=== PATIENT | male | born 1940 | race Caucasian/White ===

== ENCOUNTER 2017-07-22 19:17 | Inpatient (IN) ==
[2017-07-22] MEDS ORDERED: ONDANSETRON 4 MG/2 ML VIAL IV PRN (19:20)
[2017-07-22] MEDS ORDERED: GLUCAGON 1 MG VIAL IM PRN (19:20)
[2017-07-22] MEDS ORDERED: DEXTROSE 50% 25 GM/50 ML VIAL IV PRN (19:20)
[2017-07-22] MEDS ORDERED: INSULIN REGULAR 100 UNIT/ML SUBCUT SCH (21:00)
[2017-07-22 22:23] LABS: Basophils % 0.1 % (0.0-0.8); Hematocrit 49.9 VOL% (42.0-52.0); Hemoglobin 16.1 GM/DL (14.0-18.0); Immature Granulocytes % 0.5 %; Immature Granulocytes Absolute 0.05 #; Lymphocytes # 0.6 10*3/uL (1.4-4.0); Lymphocytes % 6.2 % (21.2-54.2); Mean Corpuscular HGB Conc 32.3 GM/DL (32-36); Mean Corpuscular Hemoglobin 29 PG (27-34); Mean Corpuscular Volume 88.6 FL (87-102); Mean Platelet Volume 10.7 FL (9.6-12.0); Monocytes # 0.7 10*3/uL (0.11-0.8); Monocytes % 6.8 % (1.7-12.7); Neutrophils # 8.9 10*3/uL (1.4-7.4); Neutrophils % 86.4 % (38.7-73.9); Platelet Count 283 T/CUMM (130-400); Red Blood Count 5.63 MC/CUMM (3.8-5.5); Red Cell Distribution Width 13.1 % (9.3-17.3); White Blood Count 10.3 T/CUMM (4-12)
[2017-07-22 22:50] LABS: Bilirubin,Total 0.6 MG/DL (0.2-1.0); Calcium 8.9 MG/DL (8.5-10.1); Osmolality,Calculated 320.3 MOS/KG (273-304); Potassium 5.4 MMOL/L (3.5-5.1); Total Protein 6.7 G/DL (6.4-8.3)
[2017-07-22] MEDS: SODIUM CHLORIDE 0.9% 1,000 ML IV SCH (22:56)
[2017-07-23 01:51] LABS: Basophils % 0.1 % (0.0-0.8); Hematocrit 48.2 VOL% (42.0-52.0); Hemoglobin 15.7 GM/DL (14.0-18.0); Immature Granulocytes % 0.5 %; Immature Granulocytes Absolute 0.04 #; Lymphocytes # 0.6 10*3/uL (1.4-4.0); Lymphocytes % 6.4 % (21.2-54.2); Mean Corpuscular HGB Conc 32.6 GM/DL (32-36); Mean Corpuscular Hemoglobin 29 PG (27-34); Mean Platelet Volume 10.5 FL (9.6-12.0); Monocytes # 0.6 10*3/uL (0.11-0.8); Monocytes % 7.2 % (1.7-12.7); Neutrophils # 7.4 10*3/uL (1.4-7.4); Neutrophils % 85.8 % (38.7-73.9); Platelet Count 248 T/CUMM (130-400); Red Blood Count 5.48 MC/CUMM (3.8-5.5); Red Cell Distribution Width 13.1 % (9.3-17.3); White Blood Count 8.6 T/CUMM (4-12)
[2017-07-23] MEDS: INSULIN REGULAR 100 UNIT/ML SUBCUT SCH ×6 (02:08→22:13)
[2017-07-23 02:11] LABS: Calcium 8.2 MG/DL (8.5-10.1); Potassium 4.8 MMOL/L (3.5-5.1)
[2017-07-23] MEDS: LEVOTHYROXINE 75 MCG TABLET PO SCH (06:16)
[2017-07-23] MEDS ORDERED: GLIMEPIRIDE 4 MG TABLET PO SCH (08:00)
[2017-07-23] MEDS: PANTOPRAZOLE 40 MG TABLET PO SCH (08:45)
[2017-07-23] MEDS: TAMSULOSIN 0.4 MG CAPSULE PO SCH ×2 (08:45→21:25)
[2017-07-23] MEDS: INSULIN GLARGINE 100 UNIT/ML SUBCUT SCH (08:47)
[2017-07-23] MEDS: SODIUM CHLORIDE 0.9% 1,000 ML IV SCH ×2 (08:51→18:50)
[2017-07-23] MEDS ORDERED: hydrALAZINE 20 MG/1 ML VIAL IV PRN (13:25)
[2017-07-23] MEDS ORDERED: LACTATED RINGERS 1,000 ML IV ONE (14:00)
[2017-07-23] MEDS: GENTAMICIN 0.3% OPH SOLN 5 ML BOTTLE RIGHT EYE SCH ×2 (18:50→21:26)
[2017-07-24] MEDS: INSULIN REGULAR 100 UNIT/ML SUBCUT SCH ×6 (02:22→21:40)
[2017-07-24] MEDS: GENTAMICIN 0.3% OPH SOLN 5 ML BOTTLE RIGHT EYE SCH ×6 (02:29→21:52)
[2017-07-24] MEDS: SODIUM CHLORIDE 0.9% 1,000 ML IV SCH (02:54)
[2017-07-24] MEDS: LEVOTHYROXINE 75 MCG TABLET PO SCH (05:12)
[2017-07-24 05:51] LABS: Basophils % 0.2 % (0.0-0.8); Eosinophils % 0.7 % (0.00-10.9); Hematocrit 45.5 VOL% (42.0-52.0); Hemoglobin 14.4 GM/DL (14.0-18.0); Immature Granulocytes % 0.2 %; Immature Granulocytes Absolute 0.01 #; Lymphocytes # 0.6 10*3/uL (1.4-4.0); Lymphocytes % 13.7 % (21.2-54.2); Mean Corpuscular HGB Conc 31.6 GM/DL (32-36); Mean Corpuscular Hemoglobin 29 PG (27-34); Mean Corpuscular Volume 90.5 FL (87-102); Mean Platelet Volume 10.6 FL (9.6-12.0); Monocytes # 0.3 10*3/uL (0.11-0.8); Monocytes % 5.9 % (1.7-12.7); Neutrophils # 3.5 10*3/uL (1.4-7.4); Neutrophils % 79.3 % (38.7-73.9); Platelet Count 162 T/CUMM (130-400); Red Blood Count 5.03 MC/CUMM (3.8-5.5); Red Cell Distribution Width 13.3 % (9.3-17.3); White Blood Count 4.4 T/CUMM (4-12)
[2017-07-24 06:15] LABS: Calcium 7.7 MG/DL (8.5-10.1); Osmolality,Calculated 310.6 MOS/KG (273-304); Potassium 3.3 MMOL/L (3.5-5.1)
[2017-07-24] MEDS: PANTOPRAZOLE 40 MG TABLET PO SCH (08:56)
[2017-07-24] MEDS: TAMSULOSIN 0.4 MG CAPSULE PO SCH ×2 (08:56→21:50)
[2017-07-24] MEDS ORDERED: POTASSIUM CHLORIDE 20 MEQ TABLET PO ONE (09:00)
[2017-07-24] MEDS: SODIUM CHLORIDE 0.45% 1,000 ML IV SCH ×2 (09:02→17:10)
[2017-07-24] MEDS: INSULIN GLARGINE 100 UNIT/ML SUBCUT SCH (09:34)
[2017-07-24] MEDS ORDERED: TUBERCULIN SKIN TEST 0.1 ML SYRINGE INTRADERM ONE (11:00)
[2017-07-25] MEDS: INSULIN REGULAR 100 UNIT/ML SUBCUT SCH ×4 (02:36→13:10)
[2017-07-25] MEDS: GENTAMICIN 0.3% OPH SOLN 5 ML BOTTLE RIGHT EYE SCH ×4 (02:50→13:10)
[2017-07-25] MEDS: SODIUM CHLORIDE 0.45% 1,000 ML IV SCH ×2 (03:01→13:10)
[2017-07-25] MEDS: LEVOTHYROXINE 75 MCG TABLET PO SCH (06:12)
[2017-07-25 06:42] LABS: Calcium 7.5 MG/DL (8.5-10.1); Osmolality,Calculated 293.6 MOS/KG (273-304)
[2017-07-25] MEDS: PANTOPRAZOLE 40 MG TABLET PO SCH (08:59)
[2017-07-25] MEDS: INSULIN GLARGINE 100 UNIT/ML SUBCUT SCH (08:59)
[2017-07-25] MEDS: TAMSULOSIN 0.4 MG CAPSULE PO SCH (08:59)
[2017-07-25] MEDS ORDERED: cefTRIAXone 1,000 MG VIAL IM ONE (10:30)
[2017-07-25 11:45] VITALS: BP 142/78
== END 2017-07-25 13:50 | DRG 683 ==
LOC: N.2E 21:15 → SUATTDRO 21:15
PROVIDERS: ADMIT Internal Medicine; ATTEND Family Medicine